=== PATIENT | male | born 1970 | race Caucasian/White ===

== ENCOUNTER 2022-02-27 11:51 | Emergency (ER) | payer OTHER, SELFPAY ==
[2022-02-27] VITALS (18 sets, daily range): BP systolic 136–189; BP diastolic 75–113; PULSE 68–113; RESP 8–29; TEMP 36.6; O2SAT 96–100
--- NOTE | ~2022-02-27 | XR_ITS ---
EXAMINATION: XR shoulder RT min 2V INDICATION: Right shoulder pain TECHNIQUE: Two views of the right shoulder are submitted. COMPARISON: None FINDINGS: There is anterior and inferior dislocation of the humeral head with respect to the glenoid. No fracture is identified. The acromioclavicular joint is normal. Soft tissues are unremarkable. IMPRESSION: 1. Anterior and inferior dislocation of the right humeral head. Reviewed, dictated and finalized at location A. DROPPER
--- NOTE | ~2022-02-27 | XR_ITS ---
EXAMINATION: XR shoulder RT min 2V INDICATION: Post reduction TECHNIQUE: Two views of the right shoulder are submitted. COMPARISON: 1211 hours FINDINGS: The glenohumeral dislocation has been reduced. Normal alignment. No fracture. Glenohumeral and acromioclavicular joint spaces are normal. Soft tissues are unremarkable. IMPRESSION: 1. Reduced glenohumeral dislocation in anatomic alignment. Reviewed, dictated and finalized at location A. [employer]
--- NOTE | 2022-02-27 12:38 | ED.UPPEXIN ---
HPI - Extremity Injury (Upper) General Chief Complaint: Extremity Injury, Upper Stated Complaint: right shoulder dislocation? Time Seen by Provider: 02/27/22 12:05 History of Present Illness HPI narrative: Patient is a 51-year-old male presenting with right shoulder dislocation. Patient states that he was doing yard and housework when he suddenly felt a pop in his right shoulder followed by severe pain. States that he dislocated the shoulder about 25 to 30 years ago. States that last time it just popped into place but unfortunately this time remains dislocated. States that he has tingling in his last 2 fingers on the right hand. Denies any other pain or injury at this time. Related Data Allergies Allergy/AdvReac Type Severity Reaction Status Date / Time amoxicillin Allergy Rash Verified 02/27/22 11:52 Review of Systems Review of Systems: All systems reviewed & are unremarkable except as noted in HPI and below Exam Narrative: GENERAL: Moderately distressed due to pain. HEAD: Normocephalic, atraumatic. EYES: PERRLA and EOMI. ENT: Nares clear, no rhinorrhea or epistaxis. Mucous membranes moist. NECK: Supple. CHEST: Clear to auscultation. No respiratory distress. HEART: Regular rate and rhythm. No murmur heard. Normal peripheral pulses. ABDOMEN: Soft, nontender, nondistended, normal active bowel sounds. EXTREMITIES: Right shoulder in a sling with obvious right shoulder dislocation, 2+ radial pulses, no neurodeficits SKIN: Warm, dry, no rash. NEURO: No focal deficits. Alert and oriented x3. PSYCH: Normal mood and affect. Course Vital Signs Vital signs: Vital Signs Pulse Rate 113 H 02/27/22 11:56 Respiratory Rate 20 02/27/22 11:56 Blood Pressure 141/99 H 02/27/22 11:56 Pulse Oximetry 100 02/27/22 11:56 Oxygen Delivery Room Air 02/27/22 11:56 Temperature 97.8 F 02/27/22 14:05 Pulse Rate 90 02/27/22 15:24 Respiratory Rate 15 02/27/22 15:24 Blood Pressure 140/98 H 02/27/22 15:24 Pulse Oximetry 97 02/27/22 15:24 Oxygen Delivery High Flow Nasal Cannula 02/27/22 14:20 Oxygen Flow Rate 15 02/27/22 14:20 Procedures Orthopedic Joint Reduction Joint #1: Orthopedic Joint Reduction Date: 02/27/22 Orthopedic Joint Reduction Time: 14:09 Time Out Performed: Yes Side: right Joint Reduction Location: shoulder Analgesia: procedural sedation Pre-Procedure Neuro Vascular Exam: normal Shoulder Technique Used (if applicable): traction/counter-traction and external rotation Post-reduction neuro exam: intact Post-reduction vascular: intact Post Reduction X-Ray Obtained: Yes Post Reduction X-Ray Results: reduced Splint Applied: Yes Patient Tolerated Procedure: well Procedural Sedation Procedural Sedation #1: Procedural Sedation Date: 02/27/22 Procedural Sedation Time: 14:10 Procedure: conscious sedation for shoulder reduction Provider Performed: sedation and procedure Informed Consent Obtained: yes Plan for Sedation: moderate sedation ASA Class: II Mallampati Classification: class II IV Propofol dose (mg): 50 Patient Tolerated Procedure: well Complications: none Total Sedation Time (min): 5 MDM - Extremity Injury (Upper) MDM Narrative Medical decision making narrative: Patient is a 51-year-old male presenting with a right shoulder dislocation. X-rays show anterior and inferior dislocation of the right shoulder. Patient is neurovascularly intact. Conscious sedation and reduction performed at bedside without complication. Postreduction films show successful reduction. Patient placed in splint. Patient remains neurovascularly intact. Advised close orthopedic follow-up. Appropriate return precautions given. Patient voiced understanding and is agreeable with plan. Discharged in stable condition. Critical Care Time Critical Care T
[2022-02-27] MEDS: HYDROmorphone HCL INJ (*CRX) 1 MG/ML SYR IV PUSH (12:48)
[2022-02-27] MEDS: HYDROmorphone HCL INJ (*CRX) 1 MG/ML SYR 0.5 MG IV PUSH (13:52)
[2022-02-27] MEDS: PROPOFOL IV EMULSION 200 MG/20 ML VIAL 50 MG IV PUSH (14:01)
== END 2022-02-27 15:27 | disposition home or self-care (01) ==
PROVIDERS: Emergency Provider Emergency Medicine; PCP Internal Medicine
DX: S43.014A Anterior dislocation of right humerus, initial encounter (principal); S43.034A Inferior dislocation of right humerus, initial encounter; X50.9XXA Other and unspecified overexertion or strenuous movements or postures, initial encounter
CPT/HCPCS: 23650; 73030; 96374; 96375; 99285; J1170; J2704